=== PATIENT | male | born 1955 | race Asian ===

== ENCOUNTER 2017-09-24 15:26 | Emergency (ER) | payer OTHER ==
[~2017-09-24] VITALS: Ht 167.6 cm; Wt 78.6 kg
[2017-09-24] MEDS ORDERED: DEXAMETHASONE 4 MG TABLET ONE (15:43)
[2017-09-24] MEDS ORDERED: CEFAZOLIN 1,000 MG ONE (15:43)
[2017-09-24] MEDS ORDERED: DEXAMETHASONE 4 MG TABLET PO ONE (16:00)
[2017-09-24] MEDS ORDERED: CEFAZOLIN 1,000 MG IM ONE (16:00)
[2017-09-24 16:36] VITALS: BP 152/89
== END 2017-09-24 16:37 | disposition home or self-care (01) ==
LOC: ED 16:15
DX: L02.01 Cutaneous abscess of face (principal)
CPT/HCPCS: 96372; 99283; J0690